=== PATIENT | female | born 1985 | race Caucasian/White ===

== ENCOUNTER → 2018-06-20 09:28 | Outpatient (CLI) | payer SELFPAY ==
[2018-06-20 11:27] LABS: hCG Titer Quant., Serum 28196 mIU/mL (<9 non-preg)
== END ==
PROVIDERS: Visit Provider Obstetrics & Gynecology
DX: N91.2 Amenorrhea, unspecified (principal)
CPT/HCPCS: 36415; 84702

== ENCOUNTER → 2018-06-29 07:59 | Outpatient (CLI) | payer SELFPAY | PROVIDERS: Visit Provider Obstetrics & Gynecology | DX: Z34.90 Encounter for supervision of normal pregnancy, unspecified, unspecified trimester (principal) | CPT/HCPCS: 76801 ==

== ENCOUNTER → 2018-07-13 11:28 | Outpatient (CLI) | payer SELFPAY ==
[2018-07-13 12:04] LABS: Absolute Lymphocyte Count 1.85 X10^3/ul (0.83-4.51); Basophil# 0.02 X10^3/uL; Basophil% 0.4 % (0-1); Eosinophil# 0.03 X10^3/uL; Eosinophils% 0.6 % (0-5); Hematocrit 38.1 % (37-47); Hemoglobin 12.8 g/dl (12.0-15.0); Lymphocyte # 1.85 X10^3/ul (4.0); Mean Corp Hgb Conc 33.6 g/gl (32-36); Mean Corpuscular Hgb 29.7 pg (27.0-32.0); Mean Corpuscular Volume 88.4 fL (81-99); Monocyte# 0.35 X10^3/uL; Monocyte% 6.6 % (0-10); Neutrophil # 3.04 X10^3/uL (2.7-7.7); Neutrophil % 57.4 % (47-70); POSITIVE COUNT NO; POSITIVE DIFFERENTIAL NO; POSITIVE MORPHOLOGY NO; Platelet Count 263 K/mm3 (150-450); RBC Distribution Width CV 13.2 % (11.6-14.6); RBC Distribution Width SD 42.2 fl (35.1-43.9); Red Blood Count 4.31 M/mm3 (4.2-5.4); White Blood Count 5.3 K/mm3 (4.4-11.0)
[2018-07-13 13:34] LABS: HIV - WCH Non-Reactive (Nonreactive); Rubella IgG 129.4 IU/mL
[2018-07-13 17:55] LABS: Chlamydia Trachomatis by PCR Negative (Negative); Neisserai gonorrhoeae by PCR Negative (Negative); Probe Check PASS; Sample Adequacy Control PASS; Specimen Processing Control PASS
[2018-07-14 13:07] LABS: HEPATITIS B SURFACE AG Confirm. indicated (Negative)
[2018-07-15 09:59] LABS: HBsAg Confirmation Positive (.)
[2018-07-20 01:18] LABS: Rapid Plasmin Reagin (RPR) NONREACTIVE (NONREACTIVE)
== END ==
PROVIDERS: Visit Provider Obstetrics & Gynecology
DX: Z34.90 Encounter for supervision of normal pregnancy, unspecified, unspecified trimester (principal)
CPT/HCPCS: 36415; 85025; 86592; 86703; 86762; 86850; 86900; 87086; 87088; 87340; 87491; 87591

== ENCOUNTER → 2018-09-06 08:55 | Outpatient (CLI) | payer SELFPAY ==
[2018-09-10 16:10] LABS: Hepatitis Be Ag Negative (Negative)
[2018-09-11 14:12] LABS: Hepatitis B Core AB IgM Negative (Negative); Hepatitis Be Ab Positive (Negative)
[2018-09-11 14:17] LABS: Hepatitis B Core Ab Total Positive (Negative)
== END ==
PROVIDERS: Referring Provider Obstetrics & Gynecology; Visit Provider Obstetrics & Gynecology
DX: Z34.90 Encounter for supervision of normal pregnancy, unspecified, unspecified trimester (principal)
CPT/HCPCS: 36415; 86704; 86705; 86707; 87350

== ENCOUNTER → 2018-09-21 07:50 | Outpatient (CLI) | payer SELFPAY ==
--- NOTE | 2018-09-21 07:51 | US_ITS ---
STUDY: SECOND AND THIRD TRIMESTER OBSTETRICAL ULTRASOUND REASON FOR EXAM: Female, 32 years old. Routine survey. LMP: May 10, 2018. TECHNIQUE: Transabdominal TECHNICAL QUALITY: Adequate. PRIOR ULTRASOUND: Comparison is made with prior examination dated June 29, 2018. FINDINGS: There is a single intrauterine fetus. The fetus is in a cephalic presentation. There is demonstrated cardiac activity with a heart rate of 156 bpm. There is a normal amniotic fluid volume. The largest amniotic fluid pocket measures 3.3 cm x 4.7 cm. The amniotic fluid index (BHARAT) is normal. The placenta is fundal in location. There are Grade 1 placental changes. The cervix measures 4.0 cm in length. The bilateral adnexal regions are normal. BIOMETRY: BPD: 4.3 cm: 19 weeks, 0 days HC: 16.0 cm: 19 weeks, 0 days AC: 13.5 cm: 19 weeks, 0 days FL: 2.9 cm: 19 weeks, 1 days CI: 79% FL/BPD: 69% FL/HC: FL/AC: 22% HC/AC: 1.18 age by current US: 19 weeks, 1 days. HERNANDO by current US: February 14, 2019. Estimated weight: 269 grams, +/- 39 grams, 38 %. age by prior US: 19 weeks, 1 days. HERNANDO by prior US: February 14, 2019. Age by LMP: 19 weeks, 1 days. HERNANDO by LMP: February 14, 2019. ANATOMY: Gender: Male Cranium: Normal lateral ventricles. Normal choroid plexus. Normal cerebellum. Normal cisterna magna. Normal face, nose and lips. Chest: Normal 4-chamber heart. Abdomen/Pelvis: Normal diaphragm. Normal stomach. Normal abdominal wall. Normal cord insertion. Normal 3 vessel cord. Normal kidneys. Normal bladder. Spine: Normal cervical spine. Normal thoracic spine. Normal lumbar spine. Normal sacrum. Extremities: Normal bilateral upper extremities. Normal bilateral lower extremities. US/OB Anatomy Scan IMPRESSION: Single live intrauterine gestation with mean gestational age of 19 weeks and 1 day. The measurements obtained today following the normal expected range. Electronically Signed: Eric Lombardi MD at 13:46 EST Tel [phone], Service support ,
== END ==
PROVIDERS: Referring Provider Obstetrics & Gynecology; Visit Provider Obstetrics & Gynecology
DX: Z36.89 Encounter for other specified antenatal screening (principal)
CPT/HCPCS: 76805

== ENCOUNTER → 2018-11-23 09:18 | Outpatient (CLI) | payer SELFPAY ==
[2018-11-23 08:42] VITALS: BMI 19.6
[2018-11-23 09:54] LABS: Absolute Lymphocyte Count 1.33 X10^3/ul (0.83-4.51); Absolute Neutrophil Count 4.4 X10^3/uL (2.0-7.7); Eosinophil# 0.01 X10^3/uL; Eosinophils% 0.2 % (0-5); Hemoglobin 12.7 g/dl (12.0-15.0); Lymphocyte # 1.33 X10^3/ul (4.0); Lymphocyte % 22.4 % (19-41); Mean Corp Hgb Conc 32.6 g/gl (32-36); Mean Corpuscular Hgb 30.3 pg (27.0-32.0); Mean Corpuscular Volume 93.1 fL (81-99); Mean Platelet Vol. 10.2 fl (6.2-12.0); Monocyte# 0.22 X10^3/uL; Monocyte% 3.7 % (0-10); Neutrophil # 4.35 X10^3/uL (2.7-7.7); Neutrophil % 73.4 % (47-70); POSITIVE COUNT NO; POSITIVE DIFFERENTIAL NO; POSITIVE MORPHOLOGY NO; Platelet Count 212 K/mm3 (150-450); RBC Distribution Width SD 47.3 fl (35.1-43.9); Red Blood Count 4.19 M/mm3 (4.2-5.4); White Blood Count 5.9 K/mm3 (4.4-11.0)
[2018-11-23 10:05] LABS: Glucose Challenge Gest 1H 50g 129 mg/dL (70-140)
== END ==
PROVIDERS: Visit Provider Obstetrics & Gynecology
DX: O09.90 Supervision of high risk pregnancy, unspecified, unspecified trimester (principal); Z3A.00 Weeks of gestation of pregnancy not specified
CPT/HCPCS: 36415; 82950; 85025

== ENCOUNTER → 2019-01-11 08:13 | Outpatient (CLI) | payer SELFPAY ==
[2019-01-04 09:12] VITALS: BMI 19.6
--- NOTE | 2019-01-11 08:14 | US_ITS ---
We are attempting to reach Stephany Pierre to discuss findings. An addendum with communication details will be sent when the communication is complete. STUDY: SECOND AND THIRD TRIMESTER OBSTETRICAL ULTRASOUND - LIMITED REASON FOR EXAM: Female, 33 years old. Evaluate growth. LMP: 05/10/2018. PRIOR ULTRASOUND: 09/21/2018. TECHNIQUE: Transabdominal TECHNICAL QUALITY: Adequate. FINDINGS: There is a single intrauterine fetus. The fetus is in a cephalic presentation. There is demonstrated cardiac activity with a heart rate of 126 bpm. There is a normal amniotic fluid volume. The largest amniotic fluid pocket measures 5.1 x 6.1 cm. The amniotic fluid index (BHARAT) is 12.9 cm. The placenta is fundal in location. There are Grade 2 placental changes. The cervix measures 2.7 cm in length. The cord is present close to the neck suggestive of nuchal cord. BIOMETRY: BPD: 8.4 cm: 34 weeks, 0 days HC: 31.5 cm: 34 weeks, 0 days AC: 30.3 cm: 34 weeks, 3 days FL: 6.9 cm: 35 weeks, 3 days Age by LMP: 35 weeks, 1 days. HERNANDO by LMP: 02/14/2019. age by prior US: 19 weeks, 1 days. HERNANDO by prior US: 02/14/2019. age by current US: 34 weeks, 6 days. HERNANDO by current US: 02/16/2019. Estimated weight: 2485 grams, +/- 363 grams, 34 percentile. US/OB Limited With Biometrics IMPRESSION: 1. Single live intrauterine fetus in cephalic presentation with an estimated gestational age of 34 weeks and 6 days. The HERNANDO is 02/16/2019. 2. The growth is within normal limits when compared to the previous examination. 3. Nuchal cord present. Follow-up examination is recommended if indicated. Electronically Signed: Dangelo Askew MD at 10:52 EDT Tel , Service support ,
== END ==
PROVIDERS: Referring Provider Obstetrics & Gynecology; Visit Provider Obstetrics & Gynecology
DX: O26.843 Uterine size-date discrepancy, third trimester (principal); Z3A.00 Weeks of gestation of pregnancy not specified
CPT/HCPCS: 76816

== ENCOUNTER → 2019-01-18 15:51 | Outpatient (CLI) | payer SELFPAY ==
[2019-01-18 08:35] VITALS: BMI 21.0
== END ==
PROVIDERS: Referring Provider Obstetrics & Gynecology; Visit Provider Obstetrics & Gynecology
DX: O09.90 Supervision of high risk pregnancy, unspecified, unspecified trimester (principal); Z3A.00 Weeks of gestation of pregnancy not specified
CPT/HCPCS: 87077; 87081; 87186

== ENCOUNTER 2019-01-20 06:04 | Inpatient (IN) | payer SELFPAY ==
[2019-01-18 08:35] VITALS: BMI 21.0
[2019-01-20 06:37] VITALS: BMI 20.9
[2019-01-20] MEDS: Lactated Ringers 1,000 ML 50 ML IV ×3 (06:40→11:20)
[2019-01-20 06:57] LABS: Absolute Lymphocyte Count 1.21 X10^3/ul (0.83-4.51); Absolute Neutrophil Count 11.3 X10^3/uL (2.0-7.7); Basophil# 0.01 X10^3/uL; Basophil% 0.1 % (0-1); Eosinophil# 0.01 X10^3/uL; Eosinophils% 0.1 % (0-5); Hematocrit 39.8 % (37-47); Hemoglobin 13.3 g/dl (12.0-15.0); Lymphocyte # 1.21 X10^3/ul (4.0); Lymphocyte % 9.3 % (19-41); Mean Corp Hgb Conc 33.4 g/gl (32-36); Mean Corpuscular Hgb 30.2 pg (27.0-32.0); Mean Corpuscular Volume 90.2 fL (81-99); Mean Platelet Vol. 11.6 fl (6.2-12.0); Monocyte# 0.56 X10^3/uL; Monocyte% 4.3 % (0-10); Neutrophil # 11.25 X10^3/uL (2.7-7.7); Platelet Count 200 K/mm3 (150-450); RBC Distribution Width CV 13.8 % (11.6-14.6); RBC Distribution Width SD 45.2 fl (35.1-43.9); Red Blood Count 4.41 M/mm3 (4.2-5.4); White Blood Count 13.1 K/mm3 (4.4-11.0)
[2019-01-20 06:58] LABS: POSITIVE COUNT NO; POSITIVE DIFFERENTIAL NO; POSITIVE MORPHOLOGY NO
[2019-01-20] MEDS: Betamethasone/Betamethasone 30 MG/5 ML Vial 12 MG IM (07:13)
--- NOTE | 2019-01-20 07:15 | PCM.HP.OB ---
- Problem List (1) labor in third trimester Status: Acute (2) Supervision of high-risk Status: Acute Qualifiers: Comment: PRR HERNANDO 02/14/19 gender surprise PC Destinee marilin (3) Status: Acute Qualifiers: Comment: genetic, carrier, and ntd screening declined. anatomy scan normal (4) History of delivery affecting Status: Acute Comment: considering TOLAC, (5) Abnormal Pap smear of cervix Status: Acute Qualifiers: Comment: LEEP in march 16 (6) Hepatitis B affecting Status: Acute Comment: chronic disease resolved, full panel ordered-BeAg -, BeAb +, IgM Ab - History Date of Admission: 01/20/19 Final HERNANDO: 02/14/19 Gestational age: 36 Weeks and 3 Days History of this : This is a 33 year-old, , at 36w3d weeks gestational age presents ial . she co regular ctx no vb lof good fm. she denies any infection symptoms Surgical History: Surgical History (Last Reviewed 01/18/19 @ 08:40 by Veronica Mono) delivery delivered O82 Allergies No Known Allergies Allergy (Verified 01/18/19 08:40) Smoking Status: Never smoker Alcohol: None Number of Fetus(es): 1 Heart Tracin moderate variability reactive no decelerations category I tracing [place]: regular History Past Pregnancies: Past Pregnancies Delivery Date Name GA/Weeks Outcome Route Weight Gender Labor Length Anesthesia Delivery Location Provider FOB Labs: Mom's Labs & Results 01/20/19 01/20/19 01/20/19 06:40 06:40 06:40 WBC 13.1 H RBC 4.41 Hgb 13.3 Hct 39.8 MCV 90.2 MCH 30.2 MCHC 33.4 RDW 13.8 RDW Differential 45.2 H Plt Count 200 MPV 11.6 Immature Gran % (Auto) 0.200 Neut % (Auto) 86.0 H Lymph % (Auto) 9.3 L [place] % (Auto) 4.3 Eos % (Auto) 0.1 Baso % (Auto) 0.1 Absolute Neuts (auto) 11.3 H Absolute Lymphs (auto) 1.21 Total Counted Not Reportable Group B Strep DNA Pending Specimen Comment Pending Blood Type Pending Antibody Screen Pending Social History Smoking Status Never smoker Expected Infant Delivery Method: Review of Systems Constitutional: Denies: Fever, Malaise Eyes: Denies: Blurred vision, Vision Change HEENT: Denies: Head Aches, Visual Changes Cardiovascular: Denies: Chest Pain, Palpitations Respiratory: Denies: Cough, Shortness of Breath, Wheezing Gastrointestinal: Denies: Abdominal Pain, Diarrhea, Nausea, Vomiting Genitourinary: Denies: Dysuria, Hematuria Musculoskeletal: Denies: Joint Pain, Muscle pain Skin: Denies: Lesions, Rash Neurological: Denies: Blurred vision, Focal weakness, Headaches Psychiatric: Denies: Anxiety, Depression Endocrine: Denies: Heat/ Cold Intolerance Hematologic/ Lymphatic: Denies: Easy Bruising, Easy Bleeding Physical Exam General: Alert, Cooperative, No apparent distress HEENT: Atraumatic, Normocephalic. Negative for: Thyromegaly, Lymphadenopathy Cardiovascular: Regular rate Lungs: Normal air movement Abdomen: Soft, Non Tender, Gravid Neurological: Deep Tendon Reflexes 2+/4 and Symmetrical, Neuro grossly intact. Negative for: Clonus TUBE DRAWER: Normal external genitalia. Negative for: Vulvar lesions Estimated gestational size: Appropriate for gestational size Presentation: Cephalic Assessment/Plan All Active Problems (Last Reviewed 01/18/19 @ 08:40 by Veronica Moon) labor in third trimester (Acute) Uterine size-date discrepancy, third trimester (Acute) Supervision of high-risk (Acute) (Acute) History of delivery affecting (Acute) Abnormal Pap smear of cervix (Acute) Hepatitis B affecting (Acute) Supervision of high-risk (Resolved) This is a 33 year-old, at 36w3d weeks gestational age presents PTL Patient presents IAL, plan expectant management for , pitocin/AROM PRN if needed. Pain management: Plans epidural. GBS unknown plan IV PCN. Management of any complications: None I have reviewed the [facility] and made any clinically relevant updates.
--- NOTE | 2019-01-20 07:18 | HP.PCM_ITS ---
- Problem List (1) labor in third trimester Status: Acute (2) Supervision of high-risk Status: Acute Qualifiers: Comment: PRR HERNANDO 02/14/19 gender surprise PC Destinee marilin (3) Status: Acute Qualifiers: Comment: genetic, carrier, and ntd screening declined. anatomy scan normal (4) History of delivery affecting Status: Acute Comment: considering TOLAC, (5) Abnormal Pap smear of cervix Status: Acute Qualifiers: Comment: LEEP in march 16 (6) Hepatitis B affecting Status: Acute Comment: chronic disease resolved, full panel ordered-BeAg -, BeAb +, IgM Ab - History Date of Admission: 01/20/19 Final HERNANDO: 02/14/19 Gestational age: 36 Weeks and 3 Days History of this : This is a 33 year-old, , at 36w3d weeks gestational age presents ial . she co regular ctx no vb lof good fm. she denies any infection symptoms Surgical History: Surgical History (Last Reviewed 01/18/19 @ 08:40 by Veronica Moon) delivery delivered O82 Allergies No Known Allergies Allergy (Verified 01/18/19 08:40) Smoking Status: Never smoker Alcohol: None Number of Fetus(es): 1 Heart Tracin moderate variability reactive no decelerations category I tracing [place]: regular History Past Pregnancies: Past Pregnancies Delivery Date Name GA/Weeks Outcome Route Weight Gender Labor Length Anesthesia Delivery Location Provider FOB Labs: Mom's Labs & Results 01/20/19 01/20/19 01/20/19 06:40 06:40 06:40 WBC 13.1 H RBC 4.41 Hgb 13.3 Hct 39.8 MCV 90.2 MCH 30.2 MCHC 33.4 RDW 13.8 RDW Differential 45.2 H Plt Count 200 MPV 11.6 Immature Gran % (Auto) 0.200 Neut % (Auto) 86.0 H Lymph % (Auto) 9.3 L [place] % (Auto) 4.3 Eos % (Auto) 0.1 Baso % (Auto) 0.1 Absolute Neuts (auto) 11.3 H Absolute Lymphs (auto) 1.21 Total Counted Not Reportable Group B Strep DNA Pending Specimen Comment Pending Blood Type Pending Antibody Screen Pending Social History Smoking Status Never smoker Expected Infant Delivery Method: Review of Systems Constitutional: Denies: Fever, Malaise Eyes: Denies: Blurred vision, Vision Change HEENT: Denies: Head Aches, Visual Changes Cardiovascular: Denies: Chest Pain, Palpitations Respiratory: Denies: Cough, Shortness of Breath, Wheezing Gastrointestinal: Denies: Abdominal Pain, Diarrhea, Nausea, Vomiting Genitourinary: Denies: Dysuria, Hematuria Musculoskeletal: Denies: Joint Pain, Muscle pain Skin: Denies: Lesions, Rash Neurological: Denies: Blurred vision, Focal weakness, Headaches Psychiatric: Denies: Anxiety, Depression Endocrine: Denies: Heat/ Cold Intolerance Hematologic/ Lymphatic: Denies: Easy Bruising, Easy Bleeding Physical Exam General: Alert, Cooperative, No apparent distress HEENT: Atraumatic, Normocephalic. Negative for: Thyromegaly, Lymphadenopathy Cardiovascular: Regular rate Lungs: Normal air movement Abdomen: Soft, Non Tender, Gravid Neurological: Deep Tendon Reflexes 2+/4 and Symmetrical, Neuro grossly intact. Negative for: Clonus LICENSED GUIDE: Normal external genitalia. Negative for: Vulvar lesions Estimated gestational size: Appropriate for gestational size Presentation: Cephalic Assessment/Plan All Active Problems (Last Reviewed 01/18/19 @ 08:40 by Veronica Moon) labor in third trimester (Acute) Uterine size-date discrepancy, third trimester (Acute) Supervision of high-risk (Acute) (Acute) History of delivery affecting (Acute) Abnormal Pap smear of cervix (Acute) Hepatitis B affecting (Acute) Supervision of high-risk (Resolved) This is a 33 year-old, at 36w3d weeks gestational age presents PTL Patient presents IAL, plan expectant management for , pitocin/AROM PRN if needed. Pain management: Plans epidural. GBS unknown plan IV PCN. Management of any complications: None I have reviewed the [facility] and made any clinically relevant updates.
[2019-01-20 08:16] LABS: Group B Strep DNA By PCR POSITIVE (Negative); Probe Check PASS
--- NOTE | 2019-01-20 08:20 | NURSING ---
Lives in [facility]
[2019-01-20] MEDS: fentaNYL-bupivacaine (epidural) 100 ML BAG EPIDURAL ×2 (08:54→12:35)
[2019-01-20] MEDS: Oxytocin 30 units/NS 500 ml 30 UNITS/500 ML IV.SOLN 334 UNITS IV (13:17)
--- NOTE | 2019-01-20 13:45 | PCM.OB.VAG ---
- Problem List (1) labor in third trimester Status: Acute (2) Supervision of high-risk Status: Acute Qualifiers: Comment: PRR HERNANDO 02/14/19 gender surprise PC Destinee marilin (3) Status: Acute Qualifiers: Comment: genetic, carrier, and ntd screening declined. anatomy scan normal (4) History of delivery affecting Status: Acute Comment: considering TOLAC, (5) Abnormal Pap smear of cervix Status: Acute Qualifiers: Comment: LEEP in march 16 (6) Hepatitis B affecting Status: Acute Comment: chronic disease resolved, full panel ordered-BeAg -, BeAb +, IgM Ab - Vaginal Delivery Maternal Presentation: Active Labor 33-year-old at 36 weeks 3 days presents with labor Amniotic Membrane Rupture Type: Spontaneous Amniotic Fluid Description: Clear Final HERNANDO: 02/14/19 Gestational age: 36 Weeks and 3 Days Date of Procedure: 01/20/19 Pre-Operative Diagnosis: ial Post-Operative Diagnosis: same Surgery/ Procedure Performed: Vacuum Assisted Vaginal Delivery Type of Anesthesia: Epidural Description of Procedure: Patient proceeded to complete dilation and began pushing and developed severe recurrent periodic variables. Head was in the +3 station L away and the decision was made to apply a vacuum to shorten the second stage of labor. Patient and her were consented to risk benefits alternatives and patient is to proceed. Vacuum was applied and holes were made with 1 contraction 3 times with no pop offs and the head delivered atraumatically followed by the anterior and posterior shoulders there was a nuchal cord x1 noted infant delivered up onto the abdomen and was resuscitated easily. Placenta delivered spontaneously immediately following after delayed cord clamping was employed. Second degree perineal laceration was repaired in the usual fashion with 3-0 Vicryl repeat. EBL was 400 cc Presentation: ANGEL Placenta Disposition: [facility] Cord Vessel Description: 3 Vessels Nuchal Cord Compression: With compression Cord Entanglement: Around neck x 1, loose Estimated Blood Loss: 400 Infant A gender: Male Episiotomy Description: None Laceration: Perineal Extension/lac, 2nd degree Medications given after delivery: IV Pitocin Complications: None
[2019-01-20 17:12] VITALS: BP 103/69; PULSE 85; RESP 18
[2019-01-20] MEDS: Naproxen 250 MG Tablet 500 MG PO (17:55)
[2019-01-20] MEDS: 0.9% Saline Lock 10 ML Syringe IV (17:58)
[2019-01-20 19:45] VITALS: BP 107/73; PULSE 81; RESP 16; TEMP 37.1; O2SAT 97
[2019-01-20] MEDS: Acetaminophen 500 MG Tablet 1000 MG PO (21:59)
[2019-01-21] VITALS (9 sets, daily range): BP systolic 84–114; BP diastolic 46–68; PULSE 72–98; RESP 12–16; TEMP 36.5–37.2; O2SAT 97–98
[2019-01-21] MEDS: Naproxen 250 MG Tablet 500 MG PO (04:11)
[2019-01-21] MEDS: Senna/Docusate Sodium 1 Tablet PO (04:13)
--- NOTE | 2019-01-21 07:33 | PCM.PN.OB ---
Patient Problems: Active and Suspected Problems (Last Reviewed 01/18/19 @ 08:40 by Veronica Moon) labor in third trimester (Acute) Subjective: doing well no complaints pain controlled no CP SOB N V ambulating well tolerating po lochia moderate, going well - Physical Exam General: Alert, Oriented x3 Abdomen: Soft, Non Tender, - - FF below U Vital Signs Temp Pulse Resp BP Pulse Ox 98.3 F 74 12 91/55 L 97 01/21/19 07:19 01/21/19 07:19 01/21/19 07:19 01/21/19 07:19 01/21/19 03:27 Oxygen Delivery Method Room Air Weight: 114 lb 3.2 oz Body Mass Index (BMI) 20.9 Intake and Output for Last 24 Hours 01/19/19 01/20/19 01/21/19 23:59 23:59 23:59 Output Total 725 / 725 Balance -725 / -725 Laboratory Tests Past 24 Hrs 01/20/19 01/20/19 06:40 06:40 Group B Strep DNA POSITIVE H Specimen Comment Not Reportable Blood Type AB POSITIVE Antibody Screen NEGATIVE Medical Necessity - Tobacco Use Smoking Status: Never smoker Assessment/Plan All Active Problems (Last Reviewed 01/18/19 @ 08:40 by Veronica Moon) labor in third trimester (Acute) Uterine size-date discrepancy, third trimester (Acute) Supervision of high-risk (Acute) (Acute) History of delivery affecting (Acute) Abnormal Pap smear of cervix (Acute) Hepatitis B affecting (Acute) Supervision of high-risk (Resolved) s/p PPD # 1 1. routine post delivery care 2. breast feeding- support given 3. rh positive 4. rubella immune
--- NOTE | 2019-01-21 11:27 | NURSING ---
student's vital signs and charting reviewed.
--- NOTE | 2019-01-21 15:00 | NURSING ---
Received report from Rosette Rodriguez RN. I will assume care of patient at this time.
--- NOTE | 2019-01-21 15:03 | NURSING ---
this nursing consultant reviewed the charting completed by Hemant Beard and it is complete.
[2019-01-21] MEDS: Acetaminophen 500 MG Tablet 1000 MG PO (15:20)
--- NOTE | 2019-01-22 07:52 | PCM.PN.OB ---
Patient Problems: Active and Suspected Problems (Last Reviewed 01/18/19 @ 08:40 by Veronica Moon) labor in third trimester (Acute) Subjective: doing well no complaints pain controlled no CP SOB N V ambulating well tolerating po lochia moderate, going well - Physical Exam General: Alert, Oriented x3 Abdomen: Soft, Non Tender, Non-Distended, - - FF below U Vital Signs Temp Pulse Resp BP Pulse Ox 98.9 F 98 16 101/60 98 01/21/19 23:46 01/21/19 23:46 01/21/19 23:46 01/21/19 20:00 01/21/19 16:00 Oxygen Delivery Method Room Air Weight: 114 lb 3.2 oz Body Mass Index (BMI) 20.9 Intake and Output for Last 24 Hours 01/20/19 01/21/19 01/22/19 23:59 23:59 23:59 Output Total 725 / 725 Balance -725 / -725 Medical Necessity - Tobacco Use Smoking Status: Never smoker Assessment/Plan All Active Problems (Last Reviewed 01/18/19 @ 08:40 by Veronica Moon) labor in third trimester (Acute) Uterine size-date discrepancy, third trimester (Acute) Supervision of high-risk (Acute) (Acute) History of delivery affecting (Acute) Abnormal Pap smear of cervix (Acute) Hepatitis B affecting (Acute) Supervision of high-risk (Resolved)
--- NOTE | 2019-01-22 07:56 | PCM.DCVAG ---
Additional Instructions: If you experience any of the following, contact your healthcare provider. Bleeding that soaks a pad every hour for 2 hours Fever 100.4 or higher Unrelieved incision or abdominal pain Swelling, redness, discharge or bleeding from your incision or episiotomy site Your incision begins to separate Problems urinating (including inability to urinate or burning while urinating). Visual changes Severe headache Flu-like symptoms Pain or redness in one of both of your breasts Pain, warmth, tenderness or swelling in your legs, especially the calf area Frequent nausea and vomiting Symptoms of depression or anxiety If you experience any of the following, call 911 or go to the nearest Emergency Room. Chest pain Problems breathing Seizure activity Partial or complete paralysis of a body part, slurred speech, weakness or drooping of the face, or a sudden inability to walk or hold your balance Allergies/Adverse Reactions: Allergies No Known Allergies Allergy (Verified 01/18/19 08:40) Medications to take at Discharge Vits [Prenatabs FA] 1 tablet PO DAILY 01/20/19 Primary Care Physician: Care Physician,No Primary [Primary Care Provider] - Test Results: Test results from this visit will be discussed in further detail at your follow-up appointment, if applicable.
--- NOTE | 2019-01-22 07:57 | DCINST_ITS ---
Additional Instructions: If you experience any of the following, contact your healthcare provider. * Bleeding that soaks a pad every hour for 2 hours * Fever 100.4 or higher * Unrelieved incision or abdominal pain * Swelling, redness, discharge or bleeding from your incision or episiotomy site * Your incision begins to separate * Problems urinating (including inability to urinate or burning while urinating). * Visual changes * Severe headache * Flu-like symptoms * Pain or redness in one of both of your breasts * Pain, warmth, tenderness or swelling in your legs, especially the calf area * Frequent nausea and vomiting * Symptoms of depression or anxiety If you experience any of the following, call 911 or go to the nearest Emergency Room. * Chest pain * Problems breathing * Seizure activity * Partial or complete paralysis of a body part, slurred speech, weakness or drooping of the face, or a sudden inability to walk or hold your balance Allergies/Adverse Reactions: Allergies No Known Allergies Allergy (Verified 01/18/19 08:40) Medications to take at Discharge Vits [Prenatabs FA] 1 tablet PO DAILY 01/20/19 Primary Care Physician: Care Physician,No Primary [Primary Care Provider] - Test Results: Test results from this visit will be discussed in further detail at your follow- up appointment, if applicable.
[2019-01-22 08:30] VITALS: PULSE 68
[2019-01-22] MEDS: Senna/Docusate Sodium 1 Tablet PO (08:59)
[2019-01-22 09:13] VITALS: BP 107/77; PULSE 68; RESP 16; TEMP 36.6
[2019-01-22 14:01] VITALS: BP 109/68; PULSE 107; RESP 16; TEMP 36.8; O2SAT 98
[2019-01-22] MEDS: Acetaminophen 500 MG Tablet 1000 MG PO (14:10)
== END 2019-01-22 16:00 | disposition home or self-care (01) | DRG 806 ==
PROVIDERS: Admitting Provider Obstetrics & Gynecology; Referring Provider Obstetrics & Gynecology; Visit Provider Obstetrics & Gynecology
DX: O60.14X0 Preterm labor third trimester with preterm delivery third trimester, not applicable or unspecified (principal); O98.513 Other viral diseases complicating pregnancy, third trimester; Z37.0 Single live birth; B16.9 Acute hepatitis B without delta-agent and without hepatic coma; O34.219 Maternal care for unspecified type scar from previous cesarean delivery; O69.81X0 Labor and delivery complicated by cord around neck, without compression, not applicable or unspecified; O70.1 Second degree perineal laceration during delivery; Z3A.36 36 weeks gestation of pregnancy
CPT/HCPCS: 59050; 85025; 86850; 86900; 87653; 99218; J7120; A4216; G0378; J0702; J3490

== ENCOUNTER → 2019-03-08 16:57 | Outpatient (CLI) | payer SELFPAY ==
[2019-03-08 10:10] VITALS: BMI 20.9
[2019-03-15 10:09] LABS: HPV APTIMA, High Risk Positive (Negative)
== END ==
PROVIDERS: Referring Provider Obstetrics & Gynecology; Visit Provider Obstetrics & Gynecology
DX: Z12.4 Encounter for screening for malignant neoplasm of cervix (principal)
CPT/HCPCS: 87624; 88175; G0145

== ENCOUNTER → 2019-05-22 16:13 | Outpatient (CLI) | payer SELFPAY ==
--- NOTE | 2019-05-22 | IMM_PTH ---
PATIENT: LORENA OHARA LOC: [facility] U#:[id number] AGE/SX: 39/F ROOM: RE05/22/[address]: Dr. Stephany Pierre MD : 1985 BED: DIS: SPEC #: [id number] RECD: 05/24/19 13:47 STATUS: CECI REQ #: [id number] ROCIO: 05/22/19 00:[address]: Stephany Pierre DEPT: IMMUNOHISTOCHEMISTRY RECD BY: Martina Melchor ENTERED: 05/24/19 13:48 SP TYPE: IMMUNO OTHR DR: No Primary Care Phys Tissues: A - Uterine cervix, NOS Procedures: p16 (initial) KI-67 (add) PHYSICIAN & INSTITUTION [place] [id number] SPECIMEN INFORMATION: Tissue Source: A - 12 o'clock cervical biopsy Clinical Info: REBECCA III Specimen Number: [id number] CPT code: 94082, 82815 METHODOLOGY: Deparaffinized sections of prefer/formalin-fixed tissue or PAP/DQ stained slides are incubated with monoclonal/polyclonal antibodies/oligonucleotide probes. Localization is made via biotin free immunoperoxidase method. Appropriate controls are performed and reacted as expected. Results on target cell population are indicated in the following table: RESULTS: ANTIBODY / CLONE RESULT Block A P16 (E6H4) negative Ki-67 (30-9) positive, low These tests were developed and their performance characteristics determined by [facility]. They may not have been cleared or approved by the U.S. Food and Drug Administration. The FDA has determined that such clearance or approval is not necessary. INTERPRETATION: A. Cervix at 12 o'clock, biopsy: Focal changes suspicious for low-grade squamous dysplasia. AM:xochitl 05/24/19
--- NOTE | 2019-05-22 08:40 | CER_PTH ---
PATIENT: LORENA OHARA [facility][id number] AGE/SX: 39/F ROOM: RE05/22/[address]: Dr. Stephany Pierre MD : 1985 BED: DIS: SPEC #: [id number] RECD: 05/22/19 16:12 STATUS: CECI NICOLÁS #: [id number] ROCIO: 05/22/19 08:[address]: Stephany Pierre DEPT: SURGICAL PATHOLOGY RECD BY: Kolby Lomas ENTERED: 05/23/19 10:23 SP TYPE: CERV OT DR: No Primary Care Phys Tissues: A - Uterine cervix, NOS B - Uterine cervix, NOS Procedures: Surgery Specimen Level IV HEADER OPERATION: Colposcopy PRE-OP DIAGNOSIS: REBECCA III TISSUE SUBMITTED: A - 12 o'clock cervical biopsy, B - ECC MICROSCOPIC DIAGNOSIS A. Cervix at 12 o'clock, biopsy: Focal HPV change suspected. See comment. B. Endocervix, curettings: Rare strips of benign endocervical tissue. No evidence of dysplasia. AM:xochitl 05/24/19 COMMENT A. Results from immunohistochemistry ([id number]) for surrogate HPV marker (p16) will be reported separately. MICROSCOPIC DESCRIPTION Slides are reviewed. GROSS DESCRIPTION A - Received is one container labeled with the patient's name and not further designated. The specimen consists of one irregular fragment of light goodman soft tissue that measures 0.4 x 0.4 x 0.2 cm. The specimen is totally submitted in one cassette. B - Received in fixative is one container labeled with the patient's name and designated ECC. The specimen consists of scant fragments of tissue entirely submitted for cell block preparation. / PINKY:xochitl 05/23/19 TC:5 CPT: 09250 x2
[2019-05-22 08:42] VITALS: BMI 18.3
== END ==
PROVIDERS: Referring Provider Obstetrics & Gynecology; Visit Provider Obstetrics & Gynecology
DX: D06.9 Carcinoma in situ of cervix, unspecified (principal)
CPT/HCPCS: 88305; 88341; 88342

== ENCOUNTER 2019-06-06 10:57 | Day surgery (SDC) | payer SELFPAY ==
[2019-05-22 08:42] VITALS: BMI 18.3
--- NOTE | 2019-06-06 | IMM_PTH ---
PATIENT: LORENA OHARA LOC: [facility] [place][id number] AGE/SX: 33/F ROOM: RE06/06/[address]: Dr. Stephany Pierre MD : 1985 BED: DIS: 06/06/2019 SPEC #: [id number] RECD: 06/10/19 11:56 STATUS: CECI REQ #: [id number] ROCIO: 06/06/19 00:[address]: Stephany Pierre DEPT: IMMUNOHISTOCHEMISTRY RECD BY: Martina Melchor ENTERED: 06/10/19 11:57 SP TYPE: IMMUNO OT DR: No Primary Care Phys Tissues: A - Endocervical B - UTERINE CERVIX LEEP Procedures: p16 (initial) KI-67 (add) P16 (add) PHYSICIAN & INSTITUTION [place] [id number] SPECIMEN INFORMATION: Tissue Source: A - Endocervical curettings, B - LEEP cone Clinical Info: REBECCA III with severe dysplasia Specimen Number: [id number] A, B1 & B4 CPT code: 95648 x2, 45014 x4 METHODOLOGY: Deparaffinized sections of prefer/formalin-fixed tissue or PAP/DQ stained slides are incubated with monoclonal/polyclonal antibodies/oligonucleotide probes. Localization is made via biotin free immunoperoxidase method. Appropriate controls are performed and reacted as expected. Results on target cell population are indicated in the following table: RESULTS: ANTIBODY / CLONE RESULT Block A P16 (E6H4) negative Ki-67 (30-9) negative Block B1 P16 (E6H4) negative Ki-67 (30-9) negative Block B4 P16 (E6H4) positive, focal patchy Ki-67 (30-9) positive, low These tests were developed and their performance characteristics determined by [facility]. They may not have been cleared or approved by the U.S. Food and Drug Administration. The FDA has determined that such clearance or approval is not necessary. INTERPRETATION: A. Endocervical curettings: Consistent with changes of decidua formation. B. LEEP cone: Consistent with squamous metaplasia with focal moderate atypia. AM:xochitl 06/12/19 Case has been reviewed in consultation with Dr. Singh who concurs with the above diagnosis. IDC:PINKY
--- NOTE | 2019-06-06 05:39 | PCM.HPOB.BLA ---
- Problem List (1) REBECCA III (cervical intraepithelial neoplasia grade III) with severe dysplasia Status: Acute Comment: leep in . recurrence after . 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 Is patient in pain?: No Allergies No Known Allergies Allergy (Verified 05/22/19 08:42) Medications Vits [Prenatabs FA] 1 tab PO DAILY 01/20/19 [History Confirmed 05/22/19] norethindrone (contraceptive) 0.35 mg tablet 0.35 mg PO DAILY #28 tab 03/08/19 [Rx Confirmed 05/22/19] Is last menstrual period known: No Post menopausal: No Patient : No PFSH PFSH Surgical History delivery delivered (Acute) Social History (Updated 05/23/19 @ 18:36 by Stephany Pierre MD) Smoking Status: Never smoker alcohol intake: never substance use type: does not use caffeine: No what type of physical activity do you participate in: none seatbelt use: always do you feel safe at home: Yes additional social history: [employer] Patient works at [employer] in [place] Pregancy History 2 Elective abortions Hx Para 1 Spontaneous abortions Hx # Term Pregnancies Ectopic pregnancies Hx # Pregnancies Multiple births # of living children 2 Past Pregnancies Del. Date Name GA/Weeks Outcome Route Bth Weight Gen Labor Lgth Anesthesia Del Locatn Provider FOB Unknown 2017 [place] 39 live - full term Female [facility] - [facility] Delivery Date: On 07/13/18 @ 10:54 tSephany Pierre FTP 4 cm, PROM Delivery Date: 01/20/19 On 03/08/19 @ 10:16 Nia Joyce PTL HPI Colposcopy: Details: LORENA OHARA is a 33 year old who presents for persistent REBECCA III. she has had a leep in february. ROS Const Constitutional: Reports system reviewed and no additional complaints, except as docu; denies chills, fever(s), weight gain or weight loss GI GI: Reports as per HPI; denies abdominal pain, bloating, constipation, cramping, nausea or vomiting : Reports as per HPI; denies urinary frequency, urinary incontinence, urinary urgency, vaginal discharge or vaginal dryness all other systems reviewed and negative Exam Const General: cooperative, healthy appearing, comfortable, well developed Orientation: alert [facility] Head: normal to inspection Resp Effort & Inspection: normal respiratory effort GI Inspection: normal to inspection, non-distended Palpation: soft, no hepatosplenomegaly, no guarding External Female Exam: normal external appearance, normal appearance of the urethra Urethra: normal appearance of the urethra Speculum Exam - Vagina: normal appearance of the vagina, normal vaginal discharge, no lesions Speculum Exam - Cervix: normal appearance of the cervix, nontender Bimanual Exam- Vagina & Uterus: normal bimanual exam, uterine size normal, uterine shape normal, No cervical tenderness, uterine mobility normal, uterine consistency normal, uterus non-tender Bimanual Exam- Adnexa, other: normal adnexae, no adnexal masses Office Procedures Colposcopy Colposcopy Reason for colposcopy: HSIL Pap/REBECCA history: previous HSIL Consent Signed: Yes Time out performed: Yes Time: 08:59 Mosaicism (cervix): 12 o'clock Abnormal vessels (cervix): 12 o'clock Biopsies (cervix): 12 o'clock Acetowhite epithelium (vagina): none Punctation (vagina): none Mosaicism (vagina): none Biopsies (vagina): none Cervix+upper/adj vag+bx cervix+ECC: Yes Results [facility] Office , Urine Negative Last Edit by Nia Joyce on 05/22/19 08:53 Assessment & Plan Problems 1. REBECCA III (cervical intraepithelial neoplasia grade III) with severe dysplasia D06.9 leep in . recurrence after . Plan plan LEEP. discussed surgical risks including risks of anesthesia, infection, bleeding, injury to bowel, bladder or blood vessels, and patient wishes to proceed with surgery. Orders Orders: POC Urine 05/22/19 N92.6 Colposcopy 05/22/19 D06.9 Coding Level of Care Code No Charge Diagnoses REBECCA III (cervical intraepithelial neoplasia grade III) with severe dysplasia D06.9 Additional Codes Colposcopy - Cervix+upper/adj vag+bx cervix+ECC: Yes (40217) UPDATE- I have seen the patient and performed any clinically relevant updates to the history and physical exam. Stephany Pierre MD
[2019-06-06 11:20] LABS: Internal QC Validated? YES +Cl - CLEAR BKGD; Pregnancy, Urine Negative Negative
[2019-06-06 11:32] VITALS: BP 94/72; PULSE 79; RESP 16; TEMP 37.1; O2SAT 97; BMI 18.1
--- NOTE | 2019-06-06 12:45 | ECC_PTH ---
PATIENT: LORENA OHARA [place] [facility] [place] U#:[id number] AGE/SX: 33/F ROOM: RE06/06/[address]: Dr. Stephany Pierre MD : 1985 BED: DIS: 06/06/2019 SPEC #: [id number] RECD: 06/06/19 15:18 STATUS: CECI REJose Daniel #: [id number] ROCIO: 06/06/19 12:[address]: Stephany Pierre DEPT: SURGICAL PATHOLOGY RECD BY: Kolby Lomas ENTERED: 06/07/19 10:40 SP TYPE: ECC OT DR: No Primary Care Phys Tissues: A - Endocervical B - UTERINE CERVIX LEEP Procedures: Surgery Specimen Level IV Surgery Specimen Level V HEADER OPERATION: LEEP cone PRE-OP DIAGNOSIS: REBECCA III with severe dysplasia TISSUE SUBMITTED: A - Endocervical curettings, B - LEEP cone MICROSCOPIC DIAGNOSIS A. Endocervix, curettings: Changes of decidualization. See comment B. Cervix, LEEP conization: Focal atypical squamous metaplasia with moderate atypia. See comment. AM:xochitl 06/10/19 COMMENT Reference is made to the patient's previous cervical biopsy from 05/24/19 ([id number]) in which focal HPV change was suspected. Clinical correlation is suggested. A & B. Results from immunohistochemistry ([id number]) for surrogate HPV marker (p16) supports the above diagnosis. Dr. Singh has reviewed this case and concurs with the above diagnosis. IDC:SJ MICROSCOPIC DESCRIPTION Slides are reviewed. GROSS DESCRIPTION A - Received in fixative is one container labeled with the patient's name and designated endocervical curettings. The specimen consists of multiple fragments of hemorrhagic mucoid tissue that in aggregate measure 2.5 x 1 x 0.2 cm. The specimen is totally submitted in one cassette. B - Received in fixative is one container labeled with the patient's name and designated LEEP cone. The specimen consists of an indurated piece of LEEP conization measuring 2 x 2 cm and up to 0.5 cm in length. No mucosal lesion is identified. The nonmucosal surface is inked black. The specimen is not oriented. The specimen is radially sectioned. Also present in the container are four smaller pieces of goodman, indurated tissue measuring in aggregate 0.5 x 0.5 x 0.2 cm. The entire specimen is submitted in four cassettes with each cassette containing one quadrant. Cassette 1 also contains the detached pieces of tissue. / SJ:xochitl 06/07/19 TC: CPT: 36048, 44126
[2019-06-06] MEDS: FERRIC SUBSULFATE 8 GM SOLN (13:00)
--- NOTE | 2019-06-06 13:11 | PCM.OPRPT ---
Problem List (1) GRIFFIN III (cervical intraepithelial neoplasia grade III) with severe dysplasia Status: Acute Comment: leep in . recurrence after . Report of Operation Date of Procedure: 06/06/19 Pre-Operative Diagnosis: griffin III Post-Operative Diagnosis: same Surgery/Procedure Performed:: leep Description of Surgical Findings:: small cervix Type of Anesthesia:: Local MAC Special Medications: monsels lugols Specimen's removed: ecc cervix Drains: none Estimated Blood Loss (mL): 25 Fluids Replaced: crystalloid Description of Procedure: Patient was taken to the operating room and placed under MAC anesthesia prepped and draped in normal sterile fashion the dorsal lithotomy position. Paracervical block was placed with 1% lidocaine and using a loop electrode the outer part of the cervix was removed including the squamocolumnar junction. Endocervical curettings were taken and the base of the cervix was cauterized around the borders and the base to obtain excellent hemostasis. Monsel's paste was placed and patient was awoken and taken recovery in stable condition. Grafts/Implants Used: none - Complications none
--- NOTE | 2019-06-06 13:13 | DCINST_ITS ---
Discharge Diet: No Restrictions Discharge Activity: Return to Normal Activity, May not drive while taking narcotic pain medications. May resume sexual activity in: 4 weeks - Nothing in the vagina for 4 weeks Call your doctor if you observe: Fever of 101 or Higher, Using more than one pad per hour Allergies/Adverse Reactions: Allergies No Known Allergies Allergy (Verified 06/06/19 11:20) Medications to take at Discharge Vits [Prenatabs FA] 1 tab PO DAILY 01/20/19 norethindrone (contraceptive) 0.35 mg tablet 0.35 mg PO DAILY #28 tab 03/08/19 Primary Care Physician: Care Physician,No Primary [Primary Care Provider] - Test Results: Test results from this visit will be discussed in further detail at your follow- up appointment, if applicable. Please Follow Up With: Stephany Pierre MD - [phone]
[2019-06-06 13:17] VITALS: BP 112/74; BP 94/72; PULSE 95; RESP 16; TEMP 36.6; O2SAT 99
[2019-06-06 13:25] VITALS: BP 108/78; BP 94/72; PULSE 96; RESP 16; O2SAT 100
[2019-06-06 13:30] VITALS: BP 108/74; BP 94/72; PULSE 87; RESP 16; O2SAT 100
[2019-06-06 13:31] VITALS: BP 113/71; BP 94/72; PULSE 85; RESP 16; TEMP 36.6; O2SAT 99
[2019-06-06 15:30] VITALS: BP 94/72
== END 2019-06-06 15:41 | disposition home or self-care (01) ==
LOC: SDC 11:03 → AC 11:03
PROVIDERS: Anesthesiology; Referring Provider Obstetrics & Gynecology; Visit Provider Obstetrics & Gynecology
PROC: 0UBC7ZZ Excision of Cervix, Via Natural or Artificial Opening (ICD-10-PCS; CPT 57522; principal; 2019-06-06 12:30)
DX: D06.0 Carcinoma in situ of endocervix (principal)
CPT/HCPCS: 57522; 81025; 88305; 88307; 88341; 88342; J7120

== ENCOUNTER → 2020-10-05 12:23 | Outpatient (CLI) | payer SELFPAY ==
[2020-10-05 09:10] VITALS: BMI 18.6
[2020-10-09 06:15] LABS: HPV APTIMA, High Risk Negative (Negative)
== END ==
PROVIDERS: Referring Provider Obstetrics & Gynecology; Visit Provider Obstetrics & Gynecology
DX: Z12.4 Encounter for screening for malignant neoplasm of cervix (principal)
CPT/HCPCS: 87624; 88175; G0145

== ENCOUNTER → 2023-06-06 | Outpatient (CLI) | payer SELFPAY ==
[2023-06-12 15:07] LABS: HPV APTIMA, High Risk Negative (Negative)
== END | disposition home or self-care (01) ==
LOC: LABSPEC 15:49
PROVIDERS: Referring Provider Nurse Practitioner Women's Health; Visit Provider Nurse Practitioner Women's Health
DX: Z12.4 Encounter for screening for malignant neoplasm of cervix (principal)
CPT/HCPCS: 87624; 88175; G0145

== ENCOUNTER → 2024-06-07 | Outpatient (CLI) | payer SELFPAY ==
[2024-06-13 19:07] LABS: HPV APTIMA, High Risk Negative (Negative)
== END | disposition home or self-care (01) ==
LOC: LABSPEC 12:32
PROVIDERS: Referring Provider Advanced Practice Midwife; Visit Provider Advanced Practice Midwife
DX: Z12.4 Encounter for screening for malignant neoplasm of cervix (principal)
CPT/HCPCS: 87624; 88175; G0145

== ENCOUNTER → 2025-06-11 | Outpatient (CLI) | payer SELFPAY ==
[2025-06-13 14:08] LABS: HPV APTIMA, High Risk Negative (Negative)
== END | disposition home or self-care (01) ==
PROVIDERS: Visit Provider Nurse Practitioner Women's Health
DX: Z12.4 Encounter for screening for malignant neoplasm of cervix (principal)
CPT/HCPCS: 87624; 88175; G0145